=== PATIENT | female | born 2000 | race Caucasian/White ===

== ENCOUNTER 2019-11-08 15:11 | Inpatient (IN) | payer BC ==
[2019-11-08] MEDS ORDERED: IBUPROFEN 600 MG TAB PO STA (16:08)
[2019-11-08] MEDS ORDERED: ONDANSETRON 4 MG/2 ML VIAL IVP STA (16:08)
--- NOTE | 2019-11-08 16:09 | ED ---
Abdominal Pain HPI - General Chief Complaint: Abdominal Pain Stated Complaint: Abd pain, body aches Time Seen by Provider: 11/08/19 15:18 Source: patient, RN notes reviewed, old records reviewed Mode of arrival: ambulatory Limitations: no limitations - History of Present Illness Initial Comments: This is a 19-year-old female DF for evaluation patient Dese for evaluation regards to severe abdominal pain nausea vomiting and fever. Patient has some generalized abdominal pain no active vomiting no diarrhea here in the ER. Patient complains of some shortness of breath or generalized body aches and pains MD Complaint: abdominal pain, other (Fever) -: days(s) (2) Location: diffuse Radiation: epigastric, suprapubic Migration to: epigastric Severity: moderate Severity scale (1-10): 7 Quality: cramping, aching Consistency: constant Improves With: nothing Worsens With: nothing Context: sick contacts Associated Symptoms: nausea, vomiting, diarrhea - Related Data Home Medications Medication Instructions Recorded Confirmed Etonogestrel [Nexplanon] 1 implant SQ [id number] 11/08/19 11/08/19 Allergies Allergy/AdvReac Type Severity Reaction Status Date / Time No Known Allergies Allergy Verified 11/08/19 17:12 Review of Systems ROS Statement: Those systems with pertinent positive or pertinent negative responses have been documented in the HPI. ROS Other: All systems not noted in ROS Statement are negative. Past Medical History Past Medical History: No Reported History Additional Past Medical History / Comment(s): abdominal pain, History of Any Multi-Drug Resistant Organisms: None Reported Past Surgical History: No Surgical Hx Reported Past Anesthesia/Blood Transfusion Reactions: Motion Sickness Past Psychological History: No Psychological Hx Reported Smoking Status: Never smoker Past Alcohol Use History: None Reported Past Drug Use History: None Reported - Past Family History Father Family Medical History: Cancer General Exam Limitations: no limitations General appearance: anxious Head exam: Present: atraumatic, normocephalic, normal inspection Eye exam: Present: normal appearance, PERRL, EOMI. Absent: scleral icterus, conjunctival injection, periorbital swelling ENT exam: Present: normal exam, mucous membranes moist Neck exam: Present: normal inspection. Absent: tenderness, meningismus, lymphadenopathy Respiratory exam: Present: normal lung sounds bilaterally. Absent: respiratory distress, wheezes, rales, rhonchi, stridor Cardiovascular Exam: Present: normal rhythm, tachycardia, normal heart sounds. Absent: systolic murmur, diastolic murmur, rubs, gallop, clicks GI/Abdominal exam: Present: soft, normal bowel sounds. Absent: distended, tenderness, guarding, rebound, rigid Extremities exam: Present: normal inspection, full ROM, normal capillary refill. Absent: tenderness, pedal edema, joint swelling, calf tenderness Back exam: Present: normal inspection Neurological exam: Present: alert, oriented X3, CN II-XII intact Psychiatric exam: Present: normal affect, normal mood Skin exam: Present: warm, dry, intact, normal color. Absent: rash Course Vital Signs 11/08/19 11/08/19 15:13 17:23 Temperature 103.2 F H Pulse Rate 152 H 118 H Respiratory 22 18 Rate Blood Pressure 138/77 125/85 O2 Sat by Pulse 99 98 Oximetry - Reevaluation(s) Reevaluation #1: 11/08/19 16:41 Medical records reviewed Reevaluation #2: 11/08/19 18:12 Patient symptoms are improved symptomatically therapy pain control and fever control here in the ER Medical Decision Making - Medical Decision Making 19 female DF for evaluation signs and symptoms of covid, will admit for some resuscitation symptom management - Lab Data Result diagrams: 11/08/19 16:05 11/08/19 16:05 Lab Results 11/08/19 11/08/19 11/08/19 Range/Units 16:05 16:05 16:05 WBC 16.2 H (3.8-10.6) k/uL RBC 4.59 (3.80-5.40) m/uL Hgb 15.0 (11.4-16.0) gm/dL Hct 43.7 (34.0-46.0) % MCV 95.1 (80.0-100.0) fL MCH 32.7 (25.0-35.0) pg MCHC 34.4 (31.0-37.0) g/dL RDW 13.3 (11.5-15.5) % Plt Count 289 (150-450) k/uL Neutrophils % 89 % Lymphocytes % 5 % Monocytes % 4 % Eosinophils % 1 % Basophils % 0 % Neutrophils # 14.5 H (1.3-7.7) k/uL Lymphocytes # 0.8 L (1.0-4.8) k/uL Monocytes # 0.6 (0-1.0) k/uL Eosinophils # 0.2 (0-0.7) k/uL Basophils # 0.0 (0-0.2) k/uL PT 10.3 (9.0-12.0) sec INR 1.0 (<1.2) APTT 23.4 (22.0-30.0) sec D-Dimer 0.90 H (<0.60) mg/L FEU Sodium 135 L (137-145) mmol/L Potassium 4.2 (3.5-5.1) mmol/L Chloride 101 (98-107) mmol/L Carbon Dioxide 24 (22-30) mmol/L Anion Gap 10 mmol/L BUN 7 (7-17) mg/dL Creatinine 0.65 (0.52-1.04) mg/dL Est GFR (CKD-EPI)AfAm >90 (>60 ml/min/1.73 sqM) Est GFR (CKD-EPI)NonAf >90 (>60 ml/min/1.73 sqM) Glucose 107 H (74-99) mg/dL Plasma Lactic Acid Goyo (0.7-2.0) mmol/L Calcium 9.2 (8.4-10.2) mg/dL Magnesium 1.9 (1.6-2.3) mg/dL Total Bilirubin 0.9 (0.2-1.3) mg/dL AST 24 (14-36) U/L ALT 11 (4-34) U/L Alkaline Phosphatase 56 (38-126) U/L Lactate Dehydrogenase 689 H (313-618) U/L C-Reactive Protein 226.1 H (<10.0) mg/L Total Protein 7.0 (6.3-8.2) g/dL Albumin 4.3 (3.5-5.0) g/dL 11/08/19 Range/Units 16:05 WBC (3.8-10.6) k/uL RBC (3.80-5.40) m/uL Hgb (11.4-16.0) gm/dL Hct (34.0-46.0) % MCV (80.0-100.0) fL MCH (25.0-35.0) pg MCHC (31.0-37.0) g/dL RDW (11.5-15.5) % Plt Count (150-450) k/uL Neutrophils % % Lymphocytes % % Monocytes % % Eosinophils % % Basophils % % Neutrophils # (1.3-7.7) k/uL Lymphocytes # (1.0-4.8) k/uL Monocytes # (0-1.0) k/uL Eosinophils # (0-0.7) k/uL Basophils # (0-0.2) k/uL PT (9.0-12.0) sec INR (<1.2) APTT (22.0-30.0) sec D-Dimer (<0.60) mg/L FEU Sodium (137-145) mmol/L Potassium (3.5-5.1) mmol/L Chloride (98-107) mmol/L Carbon Dioxide (22-30) mmol/L Anion Gap mmol/L BUN (7-17) mg/dL Creatinine (0.52-1.04) mg/dL Est GFR (CKD-EPI)AfAm (>60 ml/min/1.73 sqM) Est GFR (CKD-EPI)NonAf (>60 ml/min/1.73 sqM) Glucose (74-99) mg/dL Plasma Lactic Acid Goyo 1.0 (0.7-2.0) mmol/L Calcium (8.4-10.2) mg/dL Magnesium (1.6-2.3) mg/dL Total Bilirubin (0.2-1.3) mg/dL AST (14-36) U/L ALT (4-34) U/L Alkaline Phosphatase (38-126) U/L Lactate Dehydrogenase (313-618) U/L C-Reactive Protein (<10.0) mg/L Total Protein (6.3-8.2) g/dL Albumin (3.5-5.0) g/dL - EKG Data -: EKG Interpreted by Me (EKG is sinus tachycardia rate of 119 VA 132 QRS 72 QTC 391) - Radiology Data Radiology results: report reviewed (X-ray abdominal series with chest is negative for acute disease), image reviewed Disposition Clinical Impression: Abdominal pain, Gastroenteritis, Fever Narrative: ro COVID Disposition: ADMITTED IP TO THIS [facility] Condition: Fair Is patient prescribed a controlled substance at d/c from ED?: No Referrals: Franchesca,Flavio, DO [Primary Care Provider] - 1-2 days
[2019-11-08 16:16] LABS: Basophils % (A) 0 %; Eosinophils # (A) 0.2 k/uL (0-0.7); Eosinophils % (A) 1 %; HCT 43.7 % (34.0-46.0); Lymphocytes # (A) 0.8 k/uL (1.0-4.8); Lymphocytes % (A) 5 %; MCH 32.7 pg (25.0-35.0); MCHC 34.4 g/dL (31.0-37.0); MCV 95.1 fL (80.0-100.0); Mean Platelet Volume 7.1; Monocytes # (A) 0.6 k/uL (0-1.0); Monocytes % (A) 4 %; Neutrophils # (A) 14.5 k/uL (1.3-7.7); Neutrophils % (A) 89 %; Platelet Count 289 k/uL (150-450); RBC 4.59 m/uL (3.80-5.40); RDW 13.3 % (11.5-15.5); WBC 16.2 k/uL (3.8-10.6)
[2019-11-08] MEDS: ACETAMINOPHEN TAB 500 MG TAB PO STA ×2 (16:20→16:53)
[2019-11-08] MEDS ORDERED: KETOROLAC 30 MG/ML 1 ML VIAL IVP STA ×2 (16:25→23:33)
[2019-11-08] MEDS ORDERED: ACETAMINOPHEN IV (For NPO) 1,000 MG in EMPTY BAG 1 BAG IVPB STA (16:25)
[2019-11-08 16:26] LABS: ALT 11 U/L (4-34); AST 24 U/L (14-36); African American GFR (CKD) >90 (>60 ml/min/1.73 sqM); Albumin 4.3 g/dL (3.5-5.0); Alkaline Phosphatase 56 U/L (38-126); Anion Gap 10 mmol/L; Blood Urea Nitrogen 7 mg/dL (7-17); Calcium 9.2 mg/dL (8.4-10.2); Carbon Dioxide 24 mmol/L (22-30); Chloride 101 mmol/L (98-107); Glucose 107 mg/dL (74-99); LDH 689 U/L (313-618); Magnesium 1.9 mg/dL (1.6-2.3); Non-African American GFR(CKD) >90 (>60 ml/min/1.73 sqM); Potassium 4.2 mmol/L (3.5-5.1); Sodium 135 mmol/L (137-145); Total Bilirubin 0.9 mg/dL (0.2-1.3)
[2019-11-08 16:30] LABS: Partial Thromboplastin Time 23.4 sec (22.0-30.0); Prothrombin Time 10.3 sec (9.0-12.0)
--- NOTE | 2019-11-08 16:43 | XR ---
EXAMINATION TYPE: XR abdomen acute w cxr DATE OF EXAM: 11/08/2019 COMPARISON: Abdomen x-ray 04/05/2014 HISTORY: Abdominal pain TECHNIQUE: 3 views FINDINGS: Heart and mediastinum are normal. Lungs are clear. Diaphragm is normal. Bony thorax is inta ct. Bowel gas pattern is normal. There is no sign of intestinal obstruction or pneumoperitoneum. Feca l pattern is normal. There are no pathologic calcifications over the kidneys. Bony structures are int act. There is no evidence of a mass. IMPRESSION: Normal chest. Nonacute abdomen. Abdomen unchanged compared to old exam.
[2019-11-08 16:52] LABS: D-Dimer 0.9 mg/L FEU (<0.60)
[2019-11-08] MEDS ORDERED: SODIUM CHLORIDE 0.9% 500 ML 500 ML IV STA (17:11)
[2019-11-08] MEDS ORDERED: SODIUM CHLORIDE 0.9% 1,000 ML IV STA (17:11)
[2019-11-08 18:03] LABS: C Reactive Protein 226.1 mg/L (<10.0)
[2019-11-08] MEDS ORDERED: MORPHINE SULFATE 4 MG/ML SYRINGE IVP PRN (18:11)
[2019-11-08] MEDS ORDERED: MORPHINE SULFATE 4 MG/ML SYRINGE IVP STA (18:11)
[2019-11-08] MEDS: SODIUM CHLORIDE 0.9% 1,000 ML IV STA ×2 (19:11→23:17)
[2019-11-08] MEDS ORDERED: ONDANSETRON 4 MG/2 ML VIAL IVP PRN (23:37)
[2019-11-09] MEDS ORDERED: KETOROLAC 30 MG/ML 1 ML VIAL IVP ONE (02:30)
[2019-11-09] MEDS ORDERED: ACETAMINOPHEN TAB 325 MG TAB PO PRN (08:32)
[2019-11-09] MEDS: ENOXAPARIN 40 MG/0.4 ML SYRINGE SQ SCH (08:53)
[2019-11-09] MEDS ORDERED: PANTOPRAZOLE 40 MG/10 ML VIAL IVP SCH (09:00)
[2019-11-09 10:13] LABS: Appearance,Urine Clear (Clear); Bilirubin,Urine Negative (Negative); Blood,Urine Small (Negative); Color,Urine Yellow; Glucose,Urine (UA) Negative (Negative); Ketones,Urine Negative (Negative); Leukocyte Esterase,Urine Moderate (Negative); Mucus,Urine Rare /hpf; Nitrite,Urine Negative (Negative); Protein,Urine Negative (Negative); RBC,Urine 5 /hpf (0-5); Specific Gravity,Urine 1.009 (1.001-1.035); Squamous Epithelial Cell,Urine 2 /hpf (0-4); WBC,Urine 58 /hpf (0-5)
--- NOTE | 2019-11-09 10:51 | XR ---
EXAMINATION TYPE: XR chest 1V portable DATE OF EXAM: 11/09/2019 COMPARISON: NONE HISTORY: Chest pain TECHNIQUE: Single frontal view of the chest is obtained. FINDINGS: There is no focal air space opacity, pleural effusion, or pneumothorax seen. The cardiac silhouette size is within normal limits. The osseous structures are intact. IMPRESSION: 1. No acute process.
[2019-11-09] MEDS: AZITHROMYCIN 500 MG TAB PO SCH (11:18)
[2019-11-09 11:19] LABS: Ferritin 184.8 ng/mL (10.0-291.0)
--- NOTE | 2019-11-09 13:16 | P.HPIM ---
History of Present Illness H&P Date: 11/09/19 History of Present Illness This is a 19-year-old female patient of Dr. Sorensen with no significant past medical history. Patient gives history that she was recently in the [place] outbreak where there was a Covid outbreak but denies any known Covid exposure. She does not work in a healthcare setting. She states she started having fevers on Saturday and on Saturday had abdominal pain and vomiting. She also developed generalized body aches and pains. Patient was found to have a temperature 103.2, heart rate initially 152, repeat 118, blood pressure 138/77, pulse ox 99% on room air. WBC 16.2, hemoglobin 15, platelet count 289. Sodium 135, potassium 4.2, chloride 101, CO2 24, BUN 7, creatinine 0.65, blood sugar 107. D-dimer 0.9. LDH 689, C-reactive protein 226.1. Lactic acid 1.0. EKG was a sinus tachycardia heart rate [address] changes. Abdominal x-ray and chest x-ray revealed normal chest, nonacute abdomen. Abdomen unchanged compared to old exam. COVID-19 PCR pending. Urinalysis revealed small amount of blood, leukoesterase moderate, WBCs 58. [facility] Patient will be started on ceftriaxone and azithromycin. Ultrasound of the abdomen ordered. Review of Systems Constitutional: Reports fever, Reports chills, no night sweats. No weight change. Reports fatigue. No daytime sleepiness. EENT: No headache. No blurred vision or double vision, no loss of vision. No loss of Hearing, no ringing in the ears, no dizziness. No nasal drainage or congestion. No epistaxis. No sore throat. Lungs: No shortness of breath, cough, no sputum production. No wheezing. Cardiovascular: No chest pain, no lower extremity edema. No palpitations. No paroxysmal nocturnal dyspnea. No orthopnea. No lightheadedness or dizziness. No syncopal episodes. Abdominal: Reports abdominal pain. Reports nausea, Reportsvomiting. No diarrhea. No constipation. No bloody or tarry stools. Reports loss of appetite. Genitourinary: No dysuria, increased frequency, urgency. No urinary retention. Musculoskeletal: No myalgias. No muscle weakness, no gait dysfunction, no frequent falls. No back pain. No neck pain. Integumentary: No wounds, no lesions. No rash or pruritus. No unusual bruising. No change in hair or nails. Neurologic: No aphasia. No facial droop. No change in mentation. No head injury. No headache. No paralysis. No paresthesia. Psychiatric: No depression. No anxiety. No mood swings. Endocrine: No abnormal blood sugars. No weight change. No excessive sweating or thirst. No cold intolerance. Physical Examination Gen: This is a 19-year-old female. Patient is resting but appears very comfortable and in no acute distress. HEENT: Head is atraumatic, normocephalic. Pupils equal, round. Sclerae is anicteric. NECK: Supple. No JVD. No lymphadenopathy. No thyromegaly. LUNGS: Crackles in the right lower base but otherwise clear to auscultation. No wheezes or rhonchi. No intercostal retractions. HEART: Regular rate and rhythm. No murmur. ABDOMEN: Soft. Bowel sounds are present. No masses. Right upper quadrant tenderness. EXTREMITIES: No pedal edema. No calf tenderness. Dorsalis pedis +2 bilaterally. NEUROLOGICAL: Patient is awake, alert and oriented x3. Cranial nerves 2 through 12 are grossly intact. Assessment and Plan 1. Febrile illness with abdominal pain, nausea and vomiting, rule out Covid infection. Ultrasound of the abdomen ordered. Patient started on azithromycin and ceftriaxone. 2. UTI. Patient started on ceftriaxone. Await urine culture. 3. Rule out Covid 19 infection. Continue isolation. 4. GI prophylaxis. Protonix. 5. DVT prophylaxis. Lovenox. Patient will be admitted to the hospital for a minimum of 2 night stay. Discharge plan: home Impression and plan of care have been directed as dictated by the signing physician. Naina Ledbetter nurse practitioner acting as scribe for signing physician. Past Medical History Past Medical History: No Reported History Additional Past Medical History / Comment(s): abdominal pain, History of Any Multi-Drug Resistant Organisms: None Reported Past Surgical History: No Surgical Hx Reported Past Anesthesia/Blood Transfusion Reactions: Motion Sickness Past Psychological History: No Psychological Hx Reported Smoking Status: Never smoker Past Alcohol Use History: None Reported Additional Past Alcohol Use History / Comment(s): Patient is a lifelong nonsmok er, no alcohol abuse, no street drug or marijuana use. She works for a [employer]. Past Drug Use History: None Reported - Past Family History Father Family Medical History: Cancer Additional Family Medical History / Comment(s): Father is alive at age 50 with history of throat cancer. Mother Additional Family Medical History / Comment(s): Mother is alive at age 51 with no major medical problems. Patient has 1 sister with no major medical problems. No brothers. No children. Medications and Allergies Home Medications Medication Instructions Recorded Confirmed Type Etonogestrel [Nexplanon] 1 implant SQ [id number] 11/08/19 11/08/19 History Allergies Allergy/AdvReac Type Severity Reaction Status Date / Time No Known Allergies Allergy Verified 11/08/19 17:12 Physical Exam Vitals: Vital Signs Temp Pulse Pulse Pulse Resp BP BP 11/09/19 07:10 98.6 F 98 16 104/69 11/09/19 01:00 98.5 F 116 H 16 125/82 11/08/19 20:18 98.4 F 16 110/75 11/08/19 20:00 98 16 11/08/19 19:22 97 11/08/19 18:36 98 16 110/75 11/08/19 18:34 99.1 F 110 H 11/08/19 17:23 118 H 18 125/85 11/08/19 15:13 103.2 F H 152 H 22 138/77 Pulse Ox 11/09/19 07:10 100 11/09/19 01:00 99 11/08/19 20:18 98 11/08/19 20:00 11/08/19 19:22 98 11/08/19 18:36 98 11/08/19 18:34 11/08/19 17:23 98 11/08/19 15:13 99 Intake and Output 11/08/19 11/09/19 11/09/19 22:59 06:59 14:59 Other: Weight 49.895 kg Results CBC & Chem 7: 11/08/19 16:05 11/08/19 16:05 Labs: Abnormal Lab Results - Last 24 Hours (Table) 11/08/19 11/08/19 11/08/19 Range/Units 16:05 16:05 16:05 WBC 16.2 H (3.8-10.6) k/uL Neutrophils # 14.5 H (1.3-7.7) k/uL Lymphocytes # 0.8 L (1.0-4.8) k/uL D-Dimer 0.90 H (<0.60) mg/L FEU Sodium 135 L (137-145) mmol/L Glucose 107 H (74-99) mg/dL Lactate Dehydrogenase 689 H (313-618) U/L C-Reactive Protein 226.1 H (<10.0) mg/L Thrombosis Risk Factor Assmnt - Choose All That Apply Any of the Below Risk Factors Present?: No
--- NOTE | 2019-11-09 15:42 | US ---
EXAMINATION TYPE: US abdomen limited DATE OF EXAM: 11/09/2019 COMPARISON: Prior ultrasound 06/13/2010, CT 04/06/2015 CLINICAL HISTORY: RUQ pain, vomiting. RUQ pain.Exam limitations due to body habitus. EXAM MEASUREMENTS: Liver Length: 16 cm Gallbladder Wall: .5 cm CBD: .3 cm Right Kidney: 9.7 x 4.3 x 4.0 cm Pancreas: wnl Liver: wnl Gallbladder: Thickened wall Evidence for sonographic Anthony's sign: No CBD: wnl Right Kidney: wnl IMPRESSION: Gallbladder wall appears thickened. No evident gallstones, correlate for possible cholecy stitis.
[2019-11-09] MEDS ORDERED: KETOROLAC 30 MG/ML 1 ML VIAL IVP STA (20:04)
[2019-11-10 02:32] VITALS: RESP 17
[2019-11-10] MEDS: ENOXAPARIN 40 MG/0.4 ML SYRINGE SQ SCH (07:38)
[2019-11-10] MEDS: AZITHROMYCIN 500 MG TAB PO SCH (07:38)
[2019-11-10 08:03] VITALS: BP 111/72; PULSE 72; TEMP 98.6
--- NOTE | 2019-11-10 08:23 | P.DS ---
Providers Date of admission: 11/08/19 18:11 Expected date of discharge: 11/10/19 Attending physician: Basil Schmitz Primary care physician: Flav[facility]a [facility] Course: History of Present Illness This is a 19-year-old female patient of Dr. Sorensen with no significant past medical history. Patient gives history that she was recently in the [place] outbreak where there was a Covid outbreak but denies any known Covid exposure. She does not work in a healthcare setting. She states she started having fevers on Saturday and on Saturday had abdominal pain and vomiting. She also developed generalized body aches and pains. Patient was found to have a temperature 103.2, heart rate initially 152, repeat 118, blood pressure 138/77, pulse ox 99% on room air. WBC 16.2, hemoglobin 15, platelet count 289. Sodium 135, potassium 4.2, chloride 101, CO2 24, BUN 7, creatinine 0.65, blood sugar 107. D-dimer 0.9. LDH 689, C-reactive protein 226.1. Lactic acid 1.0. EKG was a sinus tachycardia heart rate [address] changes. Abdominal x-ray and chest x-ray revealed normal chest, nonacute abdomen. Abdomen unchanged compared to old exam. COVID-19 PCR pending. Urinalysis revealed small amount of blood, leukoesterase moderate, WBCs 58. Patient admitted to the [facility] floor. Patient will be started on ceftriaxone and azithromycin. Ultrasound of the abdomen ordered. 11/09: Patient underwent ultrasound and gallbladder wall appeared thickened. No evidence of gallstones, correlate for possible cholecystitis. Repeat chest x- ray showed no acute findings. The patient states that she was having urinary tract infection symptoms 2 weeks ago and took [id number] medication and has been feeling okay for 2-3 days. She denies any burning or pain with urination. She is sexually active with one partner. Patient has been updated regarding results of tests. Urine culture was finalized with no growth. Blood culture no growth at 48 hours. Patient will be discharged home today in stable condition. Assessment and Plan 1. Febrile illness with abdominal pain, nausea and vomiting secondary to UTI and pyelonephritis. 2. UTI. 3. Covid 19 infection not present. Discharge plan: home Impression and plan of care have been directed as dictated by the signing physician. Naina Ledbetter nurse practitioner acting as scribe for signing physician. Patient Condition at Discharge: Good Plan - Discharge Summary New Discharge Prescriptions: New Cefuroxime Axetil [Ceftin] 500 mg PO BID 7 Days #14 tab Continue Etonogestrel [Nexplanon] 1 implant SQ [id number] Discharge Medication List Etonogestrel [Nexplanon] 1 implant SQ [id number] 11/08/19 [History] Cefuroxime Axetil [Ceftin] 500 mg PO BID 7 Days #14 tab 11/10/19 [Rx] Follow up Appointment(s)/Referral(s): Flavio Sorensen DO [Primary Care Provider] - 1 Week (office closed at time of discharge. Please call to make appointment) Patient Instructions/Handouts: Cholecystitis (ED), Urinary Tract Infection in Women (DC), Acute Nausea and Vomiting (DC) Discharge Disposition: HOME SELF-CARE
[2019-11-10] MEDS ORDERED: PANTOPRAZOLE 40 MG TABLET PO SCH (09:00)
--- NOTE | 2019-11-11 12:18 | CDI ---
Documentation Clarification Form Date: 11/11/2019 12:04:25 PM From: Kera ChanCanoCAMILLA calderón, CCDS Admit Date: 11/08/2019 06:11:00 PM Patient Name: Radhika Shelton Visit Number: [id number] Discharge Date: 11/10/2019 09:17:00 AM ATTENTION: The Clinical Documentation Specialists (CDI) and [facility] Coding Staff appreciate your assistance in clarifying documentation. Please respond to the clarification below the line at the bottom and electronically sign. The CDI & [facility] Coding staff will review the response and follow-up if needed. Please note: Queries are made part of the Legal Health Record. If you have any questions, please contact the author of this message via ITS. Dr. Basil Schmitz: Per the History & Physical on 11/08 the 11/09 Discharge Summary: "Patient gives history that she was recently in the [place] outbreak where there was a Covid outbreak but denies any known Covid exposure. COVID-19 PCR pending." Sepsis is suspected per the ED Sepsis screen. Patient history/risk factors: Abdominal pain, Motion sickness. Clinical Indicators: 19 yo female, presented to the ED on 11/07 with abdominal pain, fever, nausea, vomiting & diarrhea. Recent possible exposure to COVID-19. 11/08 Sepsis screen: Suspected. VS 11/07: T 103.2^, P 152^, R 22, BP 138/77, PO 99 RA LAB: WBC 16.2^, Neut 14.5^, D Dimer 0.90^, Na 135*, Lactate Dehydrogenase 689^, CRP 225.1^, Procalcitonin 0.32^. UA: clear, small blood, mod esterase, WBC 58^. COVID test 11/07: negative. Treatment on admission: IV Zofran, IV Tylenol, IV Toradol, IV fluid 1,000 mls @ 130/hr q7, IV fluid 1,000 mls @ 999 mls/hr q1, IV fluid 500 mls @ 999 mls/hr, IV Morphine, po Zithromax, IV Rocephin. In order to capture the severity of condition, please clarify if the above treatment/clinical indicators signify: XX Sepsis ruled out Sepsis, clarify cause if known: Present on Admission: Yes or No (Last Form Revision: June 2019) MTDD
== END 2019-11-10 09:17 | disposition home or self-care (01) | DRG 690 ==
LOC: EC 15:11 → 4SSUR 18:11
PROVIDERS: ADMIT Internal Medicine Geriatric Medicine; ATTEND Internal Medicine Geriatric Medicine
DX: N39.0 Urinary tract infection, site not specified (principal); Z20.828 Contact with and (suspected) exposure to other viral communicable diseases; K52.9 Noninfective gastroenteritis and colitis, unspecified; Z80.8 Family history of malignant neoplasm of other organs or systems
CPT/HCPCS: 36415; 71045; 74022; 76705; 80053; 81001; 81025; 82728; 83605; 83615; 83735; 84145; 85025; 85379; 85610; 85730; 86140; 87040; 87086; 93005; 96361; 96365; 96375; 99285

== ENCOUNTER → 2024-07-24 | Outpatient (CLI) | payer BC ==
--- NOTE | 2024-07-24 16:05 | US ---
EXAMINATION TYPE: US kidneys/renal and bladder DATE OF EXAM: 07/24/2024 COMPARISON: NONE CLINICAL INDICATION: Female, 24 years old with history of N39.9 UTI; Recurring UTIs x few years TECHNIQUE: Grayscale imaging of the bilateral kidneys and urinary bladder: FINDINGS: EXAM MEASUREMENTS: Right Kidney: 8.6 x 4.2 x 4.6 cm Left Kidney: 10.4 x 5.1 x 4.7 cm Post Void Residual Volume: NA mL Right Kidney: wnl, no evidence for hydronephrosis, mass or renal calculus. Left Kidney: wnl, no evidence for hydronephrosis, mass or renal calculus. Bladder: WNL Bilateral Jets seen: Yes Normal Post Void Residual: NA There is no evidence for hydronephrosis at this point in time. No nephrolithiasis is seen. No amanda s are identified. The urinary bladder is anechoic. IMPRESSION: No evidence for acute process. No obstructive uropathy or calculi visualized. [facility], , 07/24/2024 4:03 PM
== END | disposition home or self-care (01) ==
LOC: RADUSWWP 15:43
PROVIDERS: ATTEND Urology
DX: N39.9 Disorder of urinary system, unspecified (principal)
CPT/HCPCS: 76770